=== PATIENT | male | born 2000 | race Hispanic/Latino ===

== ENCOUNTER 2020-01-20 18:01 | Emergency (ER) | payer OTHER ==
[~2020-01-20] VITALS: Ht 160 cm; Wt 66.0 kg
[2020-01-20 20:10] VITALS: BP 122/71
== END 2020-01-20 20:10 | disposition home or self-care (01) | DRG 563 ==
LOC: ED 18:01
PROC: 2W3JX1Z Immobilization of Right Finger using Splint (ICD-10-PCS; principal; 2020-01-20)
DX: S62.666A Nondisplaced fracture of distal phalanx of right little finger, initial encounter for closed fracture (principal); W23.0XXA Caught, crushed, jammed, or pinched between moving objects, initial encounter; Y92.89 Other specified places as the place of occurrence of the external cause; Y99.0 Civilian activity done for income or pay